=== PATIENT | female | born 1990 | race Two or more races ===

== ENCOUNTER 2023-09-30 02:16 | Emergency (ER) | payer MEDICAID ==
[~2023-09-30] VITALS: Ht 167.6 cm; Wt 70.0 kg
[2023-09-30 02:27] VITALS: BP 120/78; PULSE 81; RESP 16; TEMP 98.4; O2SAT 100
[2023-09-30] MEDS: IBUPROFEN 600MG TABLET PO STA (04:18)
[2023-09-30] MEDS: METHOCARBAMOL 500MG TABLET PO ONE (04:18)
[2023-09-30] MEDS ORDERED: IBUP-2028 MT (06:34)
== END 2023-09-30 06:50 | disposition home or self-care (01) ==
LOC: ER 02:16
DX: M54.9 Dorsalgia, unspecified (principal); M79.652 Pain in left thigh; W50.0XXA Accidental hit or strike by another person, initial encounter; Y93.89 Activity, other specified; Y92.89 Other specified places as the place of occurrence of the external cause; Y99.8 Other external cause status
CPT/HCPCS: 72040; 72070; 72100; 73552; 81025; 99284